=== PATIENT | female | born 2000 | race Caucasian/White ===

== ENCOUNTER → 2024-07-04 | Outpatient (CLI) | payer OTHER, SELFPAY ==
--- NOTE | 2024-07-04 13:10 | CT_ITS ---
PROCEDURE: SOFT TISSUE NECK WITH CONTRAST 07/04/2024 REASON FOR EXAM: PAIN IN THROAT TECHNIQUE: CT of the soft tissues of the neck from the orbits to the upper mediastinum with intravenous contrast. CONTRAST: Isovue-[id number] VOLUME: 100mL One or more dose reduction techniques were used (e.g., Automated exposure control, adjustment of the mA and/or kV according to patient size, use of iterative reconstruction technique). RADIATION DOSE SUMMARY: CTDlvol: 10.25 mGy DLP: 312.48 mGycm COMPARISON: None FINDINGS: Airway: Midline and patent. Salivary glands: Unremarkable. Lymph nodes: No cervical lymphadenopathy. Thyroid: Unremarkable. Vasculature: Unremarkable. Orbits: Unremarkable at visualized levels. Paranasal sinuses and mastoids: Grossly clear at visualized levels. Lung apices: Clear. Upper mediastinum: Visualized mediastinum is unremarkable. Bones: Unremarkable. Other: CT/Soft Tissue Neck WITH Contrast IMPRESSION: NORMAL CONTRAST-ENHANCED CT OF THE SOFT TISSUES OF THE NECK. Reading Location: [place] [id number]
== END | disposition home or self-care (01) ==
LOC: CT 13:04
DX: R07.0 Pain in throat (principal)
CPT/HCPCS: 70491; Q9967; A4216